=== PATIENT | male | born 1985 | race African-American/Black ===

== ENCOUNTER 2017-02-01 16:48 | Emergency (ER) | payer OTHER ==
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
[~2017-02-01 16:48] MED LIST: DICLOFENAC PO; VIBRAMYCIN100 M1 PO
== END 2017-02-01 19:01 | disposition home or self-care (01) ==
LOC: SED 16:48
DX: S46.812A Strain of other muscles, fascia and tendons at shoulder and upper arm level, left arm, initial encounter (principal); S70.01XA Contusion of right hip, initial encounter; F17.210 Nicotine dependence, cigarettes, uncomplicated; S90.31XA Contusion of right foot, initial encounter; V49.40XA Driver injured in collision with unspecified motor vehicles in traffic accident, initial encounter
CPT/HCPCS: 73030; 73502; 73630; 99284